=== PATIENT | male | born 1995 | race Caucasian/White ===

== ENCOUNTER 2024-03-09 08:32 | Emergency (ER) | payer BC, SELFPAY ==
--- NOTE | ~2024-03-09 | CT_ITS ---
EXAMINATION: CT ABDOMEN AND PELVIS WITH CONTRAST CLINICAL INFORMATION: Vomiting, diffuse abdominal pain and leukocytosis COMPARISON: None available. TECHNIQUE: Multidetector volumetric images were obtained from the superior aspect of the liver through the pubic symphysis following administration 85 mL of Omnipaque 350 intravenous contrast. Sagittal and coronal reformatted images were obtained on the technologist's workstation. Oral contrast: No This CT examination was performed using dose optimization techniques as appropriate, variously including the following: *Automated exposure control *Adjustment of mA and/or kV according to patient size (this includes techniques or standardized protocols for targeted exams where dose is matched to indication/reason for exam; i.e. extremities or head) *Use of iterative reconstruction technique DLP: 709 mGy-cm FINDINGS: LUNG BASES: The visualized lung bases are unremarkable. LIVER, GALLBLADDER, AND BILIARY TREE: The liver is normal in size, shape, and diffusely low in attenuation. No focal hepatic lesion or biliary ductal dilatation is present. The gallbladder is unremarkable with no evidence of radiopaque gallstones, gallbladder wall thickening, or obvious pericholecystic inflammatory changes. PANCREAS: Unremarkable. SPLEEN: Unremarkable. ADRENAL GLANDS: Unremarkable. KIDNEYS AND URETERS: The kidneys are normal in size, shape, and attenuation. No hydronephrosis, hydroureter, or calculi seen. No perinephric stranding. BLADDER: Unremarkable. GASTROINTESTINAL TRACT: There is mild wall thickening with fat infiltration of the distal small bowel, cecum, ascending colon, and proximal transverse colon. There are mild surrounding inflammatory changes in the right lower quadrant. ABDOMINAL WALL: No significant hernia is appreciated. LYMPH NODES: Multiple small mesenteric lymph nodes. VASCULAR: Unremarkable. PELVIC VISCERA: Unremarkable. OSSEOUS STRUCTURES: Unremarkable. CT/CT abdomen pelvis w IV con IMPRESSION: 1. Mild wall thickening with fat infiltration of the distal small bowel, cecum, ascending colon, and proximal transverse colon. There are mild surrounding inflammatory changes in the right lower quadrant. Findings are suggestive of inflammatory bowel disease. 2. Hepatic steatosis. Fleischner guidelines were followed. Electronically signed by: Carleen Faith MD 03/09/2024 02:08 PM EDT
[2024-03-09 08:36] VITALS: BP 133/95; PULSE 82; RESP 20; TEMP 35.7; O2SAT 99; BMI 29.1
--- NOTE | 2024-03-09 08:55 | ED_ITS ---
HPI - Abdominal Pain General Chief Complaint: Abdominal Pain Stated Complaint: vomiting Time Seen by Provider: 03/09/24 08:54 Source: patient Mode of arrival: ambulatory Limitations: no limitations History of Present Illness ED Provider: sandra RENEE narrative: Patient is 28 years old with history of recurrent episodes of vomiting with abdominal pain had episode about 4 times in the past has [facility] was negative previous CT scans were negative comes here with similar episode says last night had multiple episodes of vomiting tried to take hot showers without much relief Related Data Allergies Allergy/AdvReac Type Severity Reaction Status Date / Time No Known Allergies Allergy Verified 03/09/24 08:37 Review of Systems Review of Systems Yes all other systems are reviewed and are negative [facility] Social History Social History Alcohol intake: current Smoked in Last 30 Days: No Use of substances other than those prescribed or required for medical reasons: Yes Substance Use Type: Marijuana Substance Use Frequency: Daily Advance Directives: No Advance Directives Information Provided: No Do you have a plan to hurt others: No Plan Physical Exam ED Vital Signs: Vital Signs - 24 hr 03/09/24 08:36 03/09/24 10:18 03/09/24 12:21 Temperature 96.3 F L 98.3 F Pulse Rate 82 80 88 Respiratory Rate 20 16 17 Blood Pressure 133/95 H 122/63 100/62 Pulse Oximetry 99 98 98 Oxygen Delivery Method Room Air Room Air Room Air BMI result Body Mass Index 29.1 Appearance: Alert. Oriented X3. No acute distress. Eyes: PERRLA, No Nystagmus ENT: Pharynx normal. Oral Mucosa moist Neck: Normal inspection. Neck supple. CVS: Normal heart rate and rhythm. Pulses normal. Respiratory: No respiratory distress. Equal air entry bilateral, no wheezing/rales/rhonchi Abdomen: Soft and diffuse tenderness Bowel sounds are present, no mass palpable, no CVA tenderness Skin: Skin warm and dry. Normal skin color. Normal skin turgor. Extremities: No lower extremity edema. No calf tenderness Neuro: Oriented X 3. No motor deficit. No sensory deficit.No cerebellar signs , cranial nerves II-XII intact Medical Decision Making Medical Decision Making MDM Narrative: Patient has responded to IV Ativan and Zofran giving IV fluids feeling much better but sleeping at this time lab workup showed leukocytosis with left shift will do CT scan abdomen to rule out any infectious process Differential Diagnosis Differential Diagnoses: The differential diagnosis associated with the presentation includes Acute appendicitis/pancreatitis/cholecystitis/gastroenteritis/gastritis Admission/Observation Consideration of admission/observation: Escalation of care including admission/observation considered Lab Data MDM Lab Attestation statement: I reviewed the patient's lab results. 03/09/24 09:05 03/09/24 09:05 Labs: Lab Results 03/09/24 Range/Units 09:05 WBC 20.6 H (4.8-10.8) X10*3/uL RBC 4.89 (4.60-5.80) X10*6/uL Hgb 13.8 L (14.0-18.0) g/dl Hct 41.1 L (42.0-52.0) % MCV 84.0 (80.0-98.0) fL MCH 28.2 (27.0-33.0) pg MCHC 33.5 (31.0-36.0) g/dl RDW 11.7 (11.0-16.0) % Plt Count 209 (160-400) X10*3/uL MPV 12.3 (9.4-12.4) fL Immature Gran % (Auto) 0.6 H (0.0-0.4) % Neut % (Auto) 85.9 H (45-73) % Lymph % (Auto) 7.5 L (20-40) % Buchanan % (Auto) 5.1 (2-11) % Eos % (Auto) 0.4 (0-4) % Baso % (Auto) 0.5 (0-2) % Lymph # (Auto) 1.6 (1.2-4.9) X10*3/uL Buchanan # (Auto) 1.1 (0.1-1.2) X10*3/uL Eos # (Auto) 0.1 (0.0-0.4) X10*3/uL Baso # (Auto) 0.1 (0.0-0.2) X10*3/uL Abs Immat Gran (auto) 0.13 H (0.00-0.03) X10*3/uL Absolute Neuts (auto) 17.7 H (2.0-8.3) x10*3/uL Absolute Nucleated RBC 0.000 (0.0-0.012) X10*3/uL Nucleated RBC % (auto) 0.0 (0.0-0.2) /100WBC Smear Tech's Comments VERIFIED Sodium 140 (135-145) mmol/L Potassium 4.5 (3.3-5.1) mmol/L Chloride 106 (96-108) mmol/L Carbon Dioxide 19 L (22-29) mmol/L Anion Gap 20 (12-20) BUN 10 (9-16) mg/dL Creatinine 1.16 (0.5-1.4) mg/dL Estim Creat Clear Calc 129.0 Estimated GFR > 60 Random Glucose 165 H (60-115) mg/dL Calcium 10.1 (8.4-10.2) mg/dL Total Bilirubin 0.8 (0.0-1.0) mg/dL Direct Bilirubin < 0.1 (0.0-0.5) mg/dL AST 34 (5-37) U/L ALT 57 H (0-40) U/L Alkaline Phosphatase 67 (39-117) U/L Total Protein 9.7 H (6.5-8.0) g/dL Albumin 5.3 H (3.5-5.0) g/dL Lipase 15 (8-78) U/L Medications Administered Discontinued Medications Generic Name Dose Route Start Last Admin Trade Name Freq PRN Reason Stop Dose Admin Famotidine 20 mg 03/09/24 09:15 03/09/24 09:24 Famotidine/Pf 20 Mg/2 Ml Vial IVPUSH 03/09/24 09:16 20 mg ONCE ONE Administration Sodium Chloride 1,000 mls @ 999 mls/hr 03/09/24 08:55 03/09/24 10:13 Ns IV 03/09/24 09:55 Infused .Q1H1M ONE Infusion Lorazepam 2 mg 03/09/24 09:15 03/09/24 09:24 Lorazepam 2 Mg/Ml Vial IVPUSH 03/09/24 09:16 2 mg ONCE ONE Administration Ondansetron HCl 4 mg 03/09/24 08:55 03/09/24 09:09 Ondansetron Hcl 4 Mg/2 Ml Vial IVPUSH 03/09/24 08:56 4 mg ONCE ONE Administration Discharge Plan Discharge Clinical Impression: Abdominal pain Patient Disposition: Still a Patient Print Language: German
[2024-03-09] MEDS: 0.9 % Sodium Chloride 1,000 ML 999 ML IV ×2 (09:09→12:36)
[2024-03-09] MEDS: ondansetron HCL 4 MG/2 ML VIAL IVPUSH (09:09)
[2024-03-09] MEDS: Famotidine/PF 20 MG/2 ML VIAL IVPUSH (09:24)
[2024-03-09] MEDS: LORazepam 2 MG/ML VIAL IVPUSH (09:24)
[2024-03-09 09:39] LABS: Alanine Aminotransferase 57 U/L (0-40); Albumin Level 5.3 g/dL (3.5-5.0); Alkaline Phosphatase 67 U/L (39-117); Anion Gap 20 (12-20); Aspartate Amino Transferase 34 U/L (5-37); Bilirubin Direct < 0.1 mg/dL (0.0-0.5); Bilirubin Total 0.8 mg/dL (0.0-1.0); Blood Urea Nitrogen 10 mg/dL (9-16); Calcium 10.1 mg/dL (8.4-10.2); Carbon Dioxide 19 mmol/L (22-29); Chloride 106 mmol/L (96-108); Estimated Glomerular Filt Rate > 60; Glucose Random 165 mg/dL (60-115); Lipase 15 U/L (8-78); Potassium 4.5 mmol/L (3.3-5.1); Sodium 140 mmol/L (135-145); Total Protein 9.7 g/dL (6.5-8.0)
[2024-03-09 10:02] LABS: Basophils Absolute Auto 0.1 X10*3/uL (0.0-0.2); Basophils Percent Auto 0.5 % (0-2); Eosinophils Absolute Auto 0.1 X10*3/uL (0.0-0.4); Eosinophils Percent Auto 0.4 % (0-4); Hematocrit 41.1 % (42.0-52.0); Imm Gran Abs Auto 0.13 X10*3/uL (0.00-0.03); Imm Gran Pct Auto 0.6 % (0.0-0.4); Lymphocytes Absolute Auto 1.6 X10*3/uL (1.2-4.9); Lymphocytes Percent Auto 7.5 % (20-40); MANUAL DIFF FLAG SCAN; Mean Platelet Volume 12.3 fL (9.4-12.4); Monocytes Absolute Auto 1.1 X10*3/uL (0.1-1.2); Monocytes Percent Auto 5.1 % (2-11); Neutrophils Absolute Auto 17.7 x10*3/uL (2.0-8.3); Neutrophils Percent Auto 85.9 % (45-73); Platelet Count 209 X10*3/uL (160-400); Red Blood Count 4.89 X10*6/uL (4.60-5.80); Red Cell Distribution Width 11.7 % (11.0-16.0); SCAN SMEAR FLAG 1; White Blood Count 20.6 X10*3/uL (4.8-10.8)
[2024-03-09 10:09] LABS: Hemoglobin 13.8 g/dl (14.0-18.0)
[2024-03-09 10:10] LABS: Mean Corpuscular HGB Conc 33.5 g/dl (31.0-36.0); Mean Corpuscular Hemoglobin 28.2 pg (27.0-33.0)
[2024-03-09 10:18] VITALS: BP 122/63; PULSE 80; RESP 16; TEMP 36.8; O2SAT 98
[2024-03-09 10:23] LABS: SLIDE REVIEW VERIFIED
--- NOTE | 2024-03-09 11:09 | PC.NURSE ---
pt aox4, ambulatory and independent. He comes to the ED from home after waking up at 0500 this morning with severe nausea, vomiting and severe abd pain. Upon arrival he was anxious and tearful. He says the pain in his stomach is sharp. He has a hx of these episodes - reports 4 times in the past year. He is going to GI at [facility] and has had a recent colonoscopy. He drinks occasionally on the weekends and smokes marijuana daily. 20g IV right AC, fluids infused and meds given per AUG. Pt is now sleeping. plan of care ongoing
[2024-03-09 12:21] VITALS: BP 100/62; PULSE 88; RESP 17; O2SAT 98
[2024-03-09] MEDS: iohexoL 350 MG/ML 100 ML INFUS..BTL 85 ML IV (12:42)
--- NOTE | 2024-03-09 12:50 | PC.NURSE ---
pt reports he is feeling much better. He reports almost complete improvement. Per Dr. Garcia another liter bolus and CT scan. Pt OK with plan
[2024-03-09] MEDS: levoFLOXacin 750 MG TABLET PO (14:40)
[2024-03-09] MEDS: predniSONE 20 MG TABLET 60 MG PO (14:40)
[2024-03-09 15:21] VITALS: BP 100/62; PULSE 88; RESP 17; TEMP 36.9; O2SAT 98
[2024-03-09 15:27] LABS: Appearance Urine Clear; Color Urine Yellow; Glucose Urine UA Negative (Negative); Leukocyte Esterase Urine Negative (Negative); Nitrite Urine Negative (Negative); PH >= 9.0 (5.0-9.0); Specific Gravity - Urine >= 1.030 (1.005-1.025); Urine Blood Negative (Negative); Urine Ketones Trace mg/dL (Negative); Urine Protein Negative (Neg-Trace)
== END 2024-03-09 15:53 | disposition home or self-care (01) ==
PROVIDERS: Emergency Provider Internal Medicine
DX: R11.10 Vomiting, unspecified (principal); R10.9 Unspecified abdominal pain; D72.829 Elevated white blood cell count, unspecified; F12.90 Cannabis use, unspecified, uncomplicated
CPT/HCPCS: 36415; 74177; 80048; 80076; 81003; 83690; 85025; 96361; 96374; 96375; 99284; J2060; J2405; Q9967

== ENCOUNTER 2024-09-20 06:29 | Inpatient (IN) | payer BC, SELFPAY ==
[2024-09-20] VITALS (7 sets, daily range): BP systolic 128–142; BP diastolic 79–95; PULSE 73–100; RESP 14–20; TEMP 36.2–37.4; O2SAT 96–100; BMI 26.8
--- NOTE | ~2024-09-20 | CT_ITS ---
EXAMINATION: CT ABDOMEN AND PELVIS WITH CONTRAST CLINICAL INFORMATION: Diffuse abdominal pain, rule out colitis. COMPARISON: 03/09/2024. TECHNIQUE: Multidetector volumetric images were obtained from the superior aspect of the liver through the pubic symphysis following administration 85 mL of Omnipaque 350 intravenous contrast. Sagittal and coronal reformatted images were obtained on the technologist's workstation. Oral contrast: No This CT examination was performed using dose optimization techniques as appropriate, variously including the following: *Automated exposure control *Adjustment of mA and/or kV according to patient size (this includes techniques or standardized protocols for targeted exams where dose is matched to indication/reason for exam; i.e. extremities or head) *Use of iterative reconstruction technique FINDINGS: LUNG BASES: The visualized lung bases are unremarkable. LIVER, GALLBLADDER, AND BILIARY TREE: There is diffuse fatty infiltration of the liver. Liver has normal size and contour. No suspicious liver lesion. No intra or extrahepatic biliary dilatation. The gallbladder is unremarkable with no evidence of radiopaque gallstones, gallbladder wall thickening, or obvious pericholecystic inflammatory changes. PANCREAS: Unremarkable. SPLEEN: Unremarkable. ADRENAL GLANDS: Unremarkable. KIDNEYS AND URETERS: The kidneys are normal in size, shape, and attenuation. No hydronephrosis, hydroureter, or calculi seen. No perinephric stranding. BLADDER: Unremarkable. GASTROINTESTINAL TRACT: There is diffuse thickening of the terminal ileum, long segment, leading into the ileocecal valve. In addition there is thickening and mild inflammation of the ascending and transverse colon to the level of the splenic flexure. The descending colon, sigmoid colon, and rectum appear normal. The stomach, and duodenum appear normal. The proximal small bowel appears normal. There is a small type I hiatus hernia. ABDOMINAL WALL: No significant hernia is appreciated. LYMPH NODES: Normal. VASCULAR: Unremarkable. PELVIC VISCERA: The prostate and seminal vesicles are unremarkable. OSSEOUS STRUCTURES: There is a minimal levoconvex lumbar scoliosis. Osseous structures otherwise normal. SI joints have a normal appearance. CT/CT abdomen pelvis w IV con IMPRESSION: 1. Wall thickening of the ileum, ascending and transverse colon to the level of the splenic flexure. Findings are consistent with ileocolitis, likely secondary to inflammatory bowel disease. No complications or free intraperitoneal air. 2. Small type I hiatus hernia. 3. Diffuse fatty infiltration of the liver. 4. Additional ancillary findings as discussed in the body of the report. Fleischner guidelines were followed. Electronically signed by: Lior Roberts MD 09/20/2024 09:27 AM EDT
[2024-09-20 07:25] LABS: MANUAL DIFF FLAG NO
--- OUTSIDE RECORDS SUMMARY | 2024-09-20 07:29 | XMS_ITS | Clinical Summary ---
Author Organization [address] Address [address] [place] [phone] Phone Care Team Providers Care Manager Immunology Name Role Phone Unavailable Primary Care Provider Unavailabl e Allergies Active Allergy Reactions Criticality Noted Date Comments Methylphenidate Anxiety Low 12/29/2022 Medications famotidine (PEPCID) 20 mg tablet Take 1 tablet (20 mg total) by mouth 2 (two) times daily. 30 tablet 12/30/2022 Active Social History Tobacco Use Types Packs/Day Years Used Date Smoking Tobacco: Former Cigarettes Q uit: 2021 Tobacco Cessation:Counseling Given: Not Answered Alcohol Use Standard Drinks/Week Comments Not Currently 0 (1 standard drink = 0.6 oz pur e alcohol) Sex and Gender Information Value Date Recorded Sex Assigned at Not on file Legal Sex Male 4:20 PM EDT Gender Identity Not on file Sexual Orientation Not on file Last Filed Vital Signs Vital Sign Reading Time Taken Comments Blood Pressure 130/80 12/30/2022 3:58 AM EDT Pulse 90 12/30/2022 3:58 AM EDT Temperature 37.1 ??C (98.8 ??F) 12/30/2022 2:01 AM ED T Respiratory Rate 20 12/30/2022 3:58 AM EDT Oxygen Saturation 98% 12/30/2022 3:58 AM EDT Inhaled Oxygen Concentration - - Weight 97 kg (213 lb 13.5 oz) 12/30/2022 2:01 AM EDT Height 193 cm (6' 4 ) 12/29/2022 4:23 PM EDT Body Mass Index 26.03 12/29/2022 4:23 PM EDT Plan of Treatment Health Maintenance Due Date Last Done Comments HIV screening 2009 Hepatitis C screening 2014 Covid-19 vaccine series (2023- season) 2024 Influenza vaccine 02/03/2025 Tetanus adult (Td q 10,TDAP once) 09/10/2028 09/10/2018, 01/02/2008, 10/06/2001, Additional history exists RSV Immunization (1 - 1-dose 75+ series) 09/07/2071 Meningococcal Vaccine Completed 03/13/2014, 009 Pneumococcal Vaccine (2 - 49 years) Aged Out No longer eligible based on patient's age to complete this topic Insurance ([employer]) [address] [facility] [place] [id number] [facility]
--- OUTSIDE RECORDS SUMMARY | 2024-09-20 07:29 | XMS_ITS | Clinical Summary ---
Author Organization [facility] Address [address] [place] [address] Care Team Providers Care Historic Preservationist Name Role Phone Rell Bey Primary Care Provider [phone] Allergies Active Allergy Reactions Criticality Noted Date Comments Dexmethylphenidate Rash 12/18/2016 aggitated Lamotrigine Rash 05/13/2024 Methylphenidate Anxiety Low 12/29/2022 Medications omeprazole OTC (PriLOSEC OTC) 20 mg EC tablet Take 20 mg by mouth. 4 Active metoclopramide (REGLAN) 5 mg tablet Take 5 mg by mouth. prn 4 Active sertraline (ZOLOFT) 100 mg tablet Take 150 mg by mouth once a day. 4 02/08/20 25 Active buPROPion XL (WELLBUTRIN XL) 300 mg tablet Take 300 mg by mouth. 4 Active cyanocobalamin (VITAMIN B12) 1,000 mcg/mL injectionIndica tions:B12 deficiency Inject 1000 mcg IM once weekly for 4 weeks, then monthly 1 mL 11 4 Active syringe with needle (Syringe 3cc/25Gx1 ) 3 mL 25 gauge x 1 syringe 3 mL 25 gauge 1 Indications:B 12 deficiency For use with B12 injections (see separate script) 10 each 1 4 Active amitriptyline (ELAVIL) 10 mg tablet Take 1 tablet (10 mg total) by mouth nightly. 90 tablet 1 5 Active Active Problems Problem Noted Date Diagnosed Date Dysthymic disorder 01/29/2013 Generalized anxiety disorder 01/29/2013 Encounters Date Type Department Care Team Description 08/14/2024 Refill [facility] - Neurology [address] [place] [address] Juan Ramon Calderon MD 07/08/2024 Orders Only [facility] Neurology [address] [place] [address] Provider, MD Renée from Last 3 Months Family History Medical History Relation Name Comments Other Mother No pertinent fa santa history Relation Name Status Comments Mother Social History Tobacco Use Types Packs/Day Years Used Date Smoking Tobacco: Never Comments:: Sex and Gender Information Value Date Recorded Sex Assigned at Male 01/10/2024 12:31 PM EDT Legal Sex Male 12:10 AM EDT Gender Identity Male 05/13/2024 12:36 PM EST Sexual Orientation Bisexual 05/13/2024 12 :36 PM EST Last Filed Vital Signs Vital Sign Reading Time Taken Comments Blood Pressure 128/76 05/13/2024 1:07 PM EST Pulse 80 05/13/2024 1:07 PM EST Temperature - - Respiratory Rate - - Oxygen Saturation 98% 05/13/2024 1:07 PM EST Inhaled Oxygen Concentration - - Weight 114.8 kg (253 lb) 05/13/2024 1:07 PM EST Height 188 cm (6' 2 ) 08/15/2013 8:20 AM EDT Body Mass Index - - Plan of Treatment Health Maintenance Due Date Last Done Comments HIV Screening 1996 Hepatitis C Screening 1996 COVID-19 Vaccine ( season) 2024 05/02/2021, 10/16/2020, 09/25/2020 Alcohol/Substance Use Screening 06/05/2024 Depression Screening and Follow-Up 06/05/2024 Social Drivers of Health Annual Screening 06/05/2024 Influenza Vaccine (Season Ended) 2025 03/31/2023, 03/13/2014, 03/01/2012, Additional history exists DTaP,Tdap,and Td Vaccines (8 - Td or Tdap) 09/10/2028 09/10/2018, 01/02/2008, 10/06/2001, Additional history exists RSV Vaccine (60+ years old and patients) (1 - 1-dose 75+ series) 09/07/2071 Hepatitis B Vaccines Completed 03/08/1997, 1996, 1996 Varicella Vaccines Completed 02/04/2009, 11/06/1997 Pneumococcal Vaccine: Pediatric (0-5 Years) and At-Risk Patients (6-50 Years) Aged Out No longer eligible based on patient's age to complete this topic Insurance [facility] PPO/EPO Care Teams Historic Preservationist Relationship Specialty Start Date End Date Rell Bey [address] [place] [address] PCP - General Internal Medicine 11/23/21
--- OUTSIDE RECORDS SUMMARY | 2024-09-20 07:29 | XMS_ITS | Referral Summary ---
Author Organization [facility] Address [address] [place] [address] Care Team Providers Care Filter Press Operator Name Role Phone Rell Bey Primary Care Provider [phone] Encounters Date Type Department Care Team Description 08/14/2024 Refill [facility] at [facility] - Neurology [address] [place] [phone] Juan Ramon Calderon MD 07/08/2024 Orders Only [facility] Neurology [address] [place] [id number] Provider, MD Renée from Last 3 Months Allergies Active Allergy Reactions Criticality Noted Date [...] Dysthymic disorder 01/29/2013 Generalized anxiety disorder 01/29/2013 Social History Tobacco Use Types Packs/Day Years [...] Mass Index - - Plan of Treatment Not on file Insurance [facility] PPO/EPO Care Teams Filter Press Operator Relationship Specialty Start Date End Date Rell Bey [address] [place] [address] PCP - General Internal Medicine 11/23/21
--- NOTE | 2024-09-20 07:34 | ED.NAVMDI ---
HPI - Nausea/Vomiting/Diarrhea General Chief complaint: Nausea/Vomiting/Diarrhea Stated complaint: vomiting blood Time Seen by Provider: 09/20/24 07:34 Source: patient Mode of arrival: ambulatory Limitations: no limitations History of Present Illness ED Provider: LY RENEE Narrative: 29 year-old male with no significant past medical history presents to the ED due to / abdominal pain and frequent vomiting. Patient reports he drinks approximately 3-4 glasses of cognac 3 times per week and consumes marijuana approximately 3 times daily. He explains he drank approximately 3 glasses of cognac and took a nap, he woke an hour later around 7pm due to sudden onset of abdominal pain and vomiting. He states he has had 4-5 episodes of vomiting and noticed the vomit had a coffee ground appearance with bright streaks of red blood and cannot keep food or liquids down. Patient has emesis bag with small volume of vomit at the bedside and it appears to be food contents with mucus. He reports having a bowel movement last night where he noticed some bright red blood in the stool. He states he is feeling some tingling in his face and extremities and hands are cold. Patient [place] [facility] [place] and reports this pain feels similar to his previous presentation where CT scan revealed colitis. He explains he followed up with GI and cant remember the definitive findings, but thinks it was explained as a viral colitis. He also endorses mild substernal chest pain that worsens on inspiration and is reproducible with palpation. He denies sick contacts, recent illness, fever, cough, diarrhea, or shortness of breath. MD elicited complaint: nausea, vomiting and abdominal pain (diffuse) Pertinent past history: other (colitis) Onset (ago): hour(s) (last night (09/19) 7pm ) Description of vomiting: bloody (with bright red streaks of blood.), coffee grounds and other (vomit in emesis bag at bedside shows food contents with mucus. No coffee ground emesis or bright red blood present) Location of pain: diffuse Radiation: diffuse Pain consistency: constant Severity: severe Pain scale (0-10): 10 Quality: constant Exacerbating factors: movement Relieving factors: none Associated symptoms: chest pain (substernal, reproduceable on palpation) and nausea/vomiting Treatment prior to arrival: none Related Data Home Medications ?Medication ?Instructions ?Recorded ?Confirmed amitriptyline 10 mg tablet 10 mg PO BEDTIME 09/20/24 09/20/24 bupropion HCl 300 mg 24 hr tablet, 300 mg PO DAILY 09/20/24 09/20/24 extended release famotidine 20 mg tablet 40 mg PO BEDTIME 09/20/24 09/20/24 omeprazole 40 mg capsule,delayed 40 mg PO DAILY@0630 09/20/24 09/20/24 release sertraline 100 mg tablet 150 mg PO BEDTIME 09/20/24 09/20/24 Allergies Allergy/AdvReac Type Severity Reaction Status Date / Time No Known Allergies Allergy Verified 09/20/24 06:40 Review of Systems Review of Systems: Yes all other systems are reviewed and are negative PMFSH Past Medical History Attestation statement: The following information was validated with the patient. Source: old records reviewed Social History Social History Alcohol intake: current Alcohol intake frequency: a few times a week Smoked in Last 30 Days: No Use of substances other than those prescribed or required for medical reasons: Yes Substance Use Type: Marijuana Advance Directives: No Advance Directives Information Provided: No Do you have a plan to hurt others: No Plan Physical Exam Vital Signs: Vital Signs: Last Vital Signs Temp 99.3 F 09/20/24 15:42 Pulse 92 09/20/24 15:42 Resp 16 09/20/24 15:42 BP 134/89 09/20/24 15:42 Pulse Ox 97 09/20/24 15:42 O2 Del Method Room Air 09/20/24 15:42 BMI result Body Mass Index 26.8 Inital vital signs: stable Exam: General: Awake, alert, patient is tearful in moderate distress due to abdominal pain and vomiting Head: Normocephalic, atraumatic EENT: PERRL, Lids normal, sclera normal, conjunctiva normal, nose normal , ears normal, throat without erythema or exudates, moist mucus membranes Neck: Supple, no adenopathy Lung: breath sounds symmetric, no wheezing, rales or rhonchi Chest: symmetric movement, substernal tenderness on palpation Heart: regular rate and rhythm, normal S1, S2 no murmurs or rubs Abdomen: soft, diffusely tender, non-distended, normal bowel sounds Back: no vertebral tenderness, no CVAT Extremities: no deformities, moves all extremities symmetrically Neuro: Awake, alert, oriented, normal speech, cranial nerves intact, moves all extremities symmetrically Psych: Pleasant, cooperative Medications Administered Discontinued Medications Generic Name Dose Route Start Last Admin Trade Name Mirq PRN Reason Stop Dose Admin Bupropion HCl 300 mg 09/20/24 13:15 09/20/24 13:50 Bupropion Hcl Xl 300 Mg Tab.Er.24h PO 300 mg DAILY BRYAN Administration Droperidol 1.25 mg 09/20/24 08:10 09/20/24 08:16 Droperidol 5 Mg/2 Ml Vial IVPUSH 09/20/24 08:11 1.25 mg ONCE ONE Administration Hydromorphone HCl 1 mg 09/20/24 08:37 09/20/24 08:41 Hydromorphone Hcl 1 Mg/Ml Syringe IVPUSH 09/20/24 08:38 1 mg ONCE STA Administration Protocol Sodium Chloride 1,000 mls @ 999 mls/hr 09/20/24 07:35 09/20/24 09:48 Ns IV 09/20/24 08:35 Infused .Q1H1M STA Infusion Sodium Chloride 1,000 mls @ 999 mls/hr 09/20/24 08:10 09/20/24 10:13 Ns IV 09/20/24 09:10 Infused .Q1H1M STA Infusion Lactated Ringer's 1,000 mls @ 100 mls/hr 09/20/24 12:00 09/20/24 15:40 Lr IVCONT Infused .Q10H BRYAN Infusion Iohexol 100 ml 09/20/24 09:16 09/20/24 09:16 Iohexol 350 Mg/Ml 100 Ml Infus..Btl IV 09/20/24 09:17 85 ml ONCE ONE Administration Ketorolac Tromethamine 15 mg 09/20/24 07:35 09/20/24 07:39 Ketorolac Tromethamine 15 Mg/Ml Vial IVPUSH 09/20/24 07:36 15 mg ONCE STA Administration Morphine Sulfate 4 mg 09/20/24 08:10 09/20/24 08:17 Morphine Sulfate 4 Mg/Ml Cartridge IVPUSH 09/20/24 08:11 4 mg ONCE ONE Administration Protocol Ondansetron HCl 4 mg 09/20/24 07:35 09/20/24 07:39 Ondansetron Hcl 4 Mg/2 Ml Vial IVPUSH 09/20/24 07:36 4 mg ONCE ONE Administration Pantoprazole Sodium 80 mg 09/20/24 11:21 09/20/24 11:53 Pantoprazole Sodium 40 Mg/10 Ml Vial IVPUSH 09/20/24 11:22 80 mg ONCE ONE Administration Medical Decision Making Medical Decision Making [facility] Narrative: 29 year-old male with no significant past medical history presents to the ED due to 03/14 abdominal pain and frequent vomiting. Patient reports he drinks approximately 3-4 glasses of cognac 3 times per week and consumes marijuana approximately 3 times daily. He explains he drank approximately 3 glasses of cognac and took a nap, he woke an hour later around 7pm due to sudden onset of abdominal pain and vomiting. He states he has had 4-5 episodes of vomiting and noticed the vomit had a coffee ground appearance with bright streaks of red blood and cannot keep food or liquids down. Patient has emesis bag with small volume of vomit at the bedside and it appears to be food contents with mucus. He reports having a bowel movement last night where he noticed some bright red blood in the stool. He states he is feeling some tingling in his face and extremities and hands are cold. Patient [place] [facility] [place] [place] [facility] [place]03[place]28) and reports this pain feels similar to his previous presentation where CT scan revealed colitis. He explains he followed up with GI and cant remember the definitive findings, but thinks it was explained as a viral colitis. He also endorses mild substernal chest pain that worsens on inspiration and is reproducible with palpation. He denies sick contacts, recent illness, fever, cough, diarrhea, or shortness of breath. Patients vital signs are stable, he is tearful and in moderate distress due to nausea and vomiting. He is non-toxic appearing. My interpretation of the labs are as follows: Patients labs show elevated WBC 16.1, elevated bilirubin of 1.4, elevated glucose 140. Lipase within normal limits, less likely pancreatitis. ESR/CRP within normal limits. 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 CT abdomen pelvis ordered to observe for acute abdomen. Patient was seen at [facility] [place] and found to have colitis, patient states this pain is similar to his last presentation. Patient's tingling of face and extremities most likely due to distress and hyperventilation syndrome while reporting his symptoms. Pain medication and droperidol for nausea should relieve his discomfort. Diffuse abdominal pain on physical exam with negative cox's sign, lipase within normal limits, less likely to be pancreatitis or biliary disease. Elevated total bilirubin likely normal for him or maybe Gilbert's Syndrome. Patient smokes marijuana 3 times daily, likely for marijuana induced cyclical vomiting. Will reassess if droperidol and fluids relieve nausea. Course 08:32: patient unable to participate in CT scan due to abdominal pain. Ordered 1mg of Dilaudid for pain management and obtaine CT when patient has better pain control. Also treated with normal saline IV. 09:28: Patient pain and nausea controlled at this time as he is resting quietly. He was able to complete CT abdomen pelvis. Awaiting results. 10:06: CT scans resulted with evidence of thickening of the ileum, ascending and transverse colon. These findings are consistent with ileocolitis, likely inflammatory, maybe IBS however ESR and CRP are normal . Will consult GI for their recommendations. 11:24: I discuss the patient's presentation with the covering computer technology trainer, Dr. Iqbal and he recommended admission for pain management, IV fluies and further evaluation. He also recommended Protonix IV. Patient was given Protonix 80 mg IV here in the emergency department. I also discuss the patient's presentation over tiger text with the covering hospitalist, physician mortgage assistant Ilda Dave and the patient will be admitted to the medical service for further treatment. Dr. Iqbal did see the patient in the ED and does not think the patient will need endoscopy or colonoscopy this visit. He recommended liquid diet, advanced as tolerated and IV fluids and pain management as needed. Differential Diagnosis Differential Diagnoses: The differential diagnosis associated with the presentation includes colitis, pancreatitis, biliary disease, gastritis, marijuana cyclical vomiting syndrome Admission/Observation Consideration of admission/observation: Escalation of care including admission/observation considered Consult Healthcare Provider Management of the patient was discussed with: Hospitalist and Family Court Registrar (GI) Lab Data MDM Lab Attestation statement: I reviewed the patient's lab results. 09/20/24 07:20 09/20/24 07:20 Labs: Lab Results 09/20/24 Range/Units 07:20 WBC 16.1 H (4.8-10.8) X10*3/uL RBC 5.52 (4.60-5.80) X10*6/uL Hgb 16.5 (14.0-18.0) g/dl Hct 46.9 (42.0-52.0) % MCV 85.0 (80.0-98.0) fL MCH 29.9 (27.0-33.0) pg MCHC 35.2 (31.0-36.0) g/dl RDW 12.4 (11.0-16.0) % Plt Count 268 D (160-400) X10*3/uL MPV 12.3 (9.4-12.4) fL Immature Gran % (Auto) 0.7 H (0.0-0.4) % Neut % (Auto) 70.4 (45-73) % Lymph % (Auto) 20.4 (20-40) % Bertie % (Auto) 5.3 (2-11) % Eos % (Auto) 2.6 (0-4) % Baso % (Auto) 0.6 (0-2) % Lymph # (Auto) 3.3 (1.2-4.9) X10*3/uL Bertie # (Auto) 0.9 (0.1-1.2) X10*3/uL Eos # (Auto) 0.4 (0.0-0.4) X10*3/uL Baso # (Auto) 0.1 (0.0-0.2) X10*3/uL Abs Immat Gran (auto) 0.12 H (0.00-0.03) X10*3/uL Absolute Neuts (auto) 11.3 H (2.0-8.3) x10*3/uL Absolute Nucleated RBC 0.000 (0.0-0.012) X10*3/uL Nucleated RBC % (auto) 0.0 (0.0-0.2) /100WBC ESR 3 (0-15) MM/HR Hold Purple Top SEE NOTE Sodium 142 (135-145) mmol/L Potassium 3.7 (3.3-5.1) mmol/L Chloride 105 (96-108) mmol/L Carbon Dioxide 22 (22-29) mmol/L Anion Gap 19 (12-20) BUN 11 (9-16) mg/dL Creatinine 0.80 (0.5-1.4) mg/dL Estim Creat Clear Calc 168.7 Estimated GFR > 60 Random Glucose 140 H (60-115) mg/dL Calcium 10.1 (8.4-10.2) mg/dL Total Bilirubin 1.4 H (0.0-1.0) mg/dL AST 26 (5-37) U/L ALT 27 (0-40) U/L Alkaline Phosphatase 82 (39-117) U/L C-Reactive Protein 0.13 (< or = 0.50) mg/dL Total Protein 8.3 H (6.5-8.0) g/dL Albumin 5.2 H (3.5-5.0) g/dL Lipase 12 (8-78) U/L Ethyl Alcohol < 10 mg/dL Radiology Impression Discussion of test interpretation with radiology: I have reviewed the radiologist's reading. Radiologist Impression: CT abdomen pelvis w IV con IMPRESSION: 1. Wall thickening of the ileum, ascending and transverse colon to the level of the splenic flexure. Findings are consistent with ileocolitis, likely secondary to inflammatory bowel disease. No complications or free intraperitoneal air. 2. Small type I hiatus hernia. 3. Diffuse fatty infiltration of the liver. 4. Additional ancillary findings as discussed in the body of the report. Fleischner guidelines were followed. Electronically signed by: Lior Roberts MD 09/20/2024 09:27 AM EDT External Record Review External record reviewed: Inpatient record Discharge Plan Discharge Clinical Impression: Colitis Hematemesis Qualifiers: Nausea presence: with nausea Qualified Code(s): K92.0 - Hematemesis Gastritis Qualifiers: Gastritis type: unspecified gastritis Chronicity: acute Gastritis bleeding: with bleeding Qualified Code(s): K29.01 - Acute gastritis with bleeding Patient Disposition: Admitted As Inpatient Interventions: ED Discharge Assessment Last Done: 09/20/24 15:42 Discharge Date/Time: 09/20/24 15:43
--- NOTE | 2024-09-20 07:35 | PC.NURSE ---
Patient reports has been throwing up coffee ground vomit x last 6 hours. Believes that he has ETOH posioning. Denies daily etoh use sates drank more yesterday than usual. Reports 10 abdominal pain, provider aware
[2024-09-20] MEDS: Ketorolac Tromethamine 15 MG/ML VIAL IVPUSH (07:39)
[2024-09-20] MEDS: 0.9 % Sodium Chloride 1,000 ML 999 ML IV ×2 (07:39→08:21)
[2024-09-20] MEDS: ondansetron HCL 4 MG/2 ML VIAL IVPUSH (07:39)
[2024-09-20 07:43] LABS: Basophils Absolute Auto 0.1 X10*3/uL (0.0-0.2); Basophils Percent Auto 0.6 % (0-2); Eosinophils Absolute Auto 0.4 X10*3/uL (0.0-0.4); Eosinophils Percent Auto 2.6 % (0-4); Hematocrit 46.9 % (42.0-52.0); Hemoglobin 16.5 g/dl (14.0-18.0); Imm Gran Abs Auto 0.12 X10*3/uL (0.00-0.03); Imm Gran Pct Auto 0.7 % (0.0-0.4); Lymphocytes Absolute Auto 3.3 X10*3/uL (1.2-4.9); Lymphocytes Percent Auto 20.4 % (20-40); Mean Corpuscular HGB Conc 35.2 g/dl (31.0-36.0); Mean Corpuscular Hemoglobin 29.9 pg (27.0-33.0); Mean Platelet Volume 12.3 fL (9.4-12.4); Monocytes Absolute Auto 0.9 X10*3/uL (0.1-1.2); Monocytes Percent Auto 5.3 % (2-11); Neutrophils Absolute Auto 11.3 x10*3/uL (2.0-8.3); Neutrophils Percent Auto 70.4 % (45-73); Platelet Count 268 X10*3/uL (160-400); Red Blood Count 5.52 X10*6/uL (4.60-5.80); Red Cell Distribution Width 12.4 % (11.0-16.0); White Blood Count 16.1 X10*3/uL (4.8-10.8)
[2024-09-20 07:48] LABS: Alanine Aminotransferase 27 U/L (0-40); Albumin Level 5.2 g/dL (3.5-5.0); Alkaline Phosphatase 82 U/L (39-117); Anion Gap 19 (12-20); Aspartate Amino Transferase 26 U/L (5-37); Bilirubin Total 1.4 mg/dL (0.0-1.0); Blood Urea Nitrogen 11 mg/dL (9-16); Calcium 10.1 mg/dL (8.4-10.2); Carbon Dioxide 22 mmol/L (22-29); Chloride 105 mmol/L (96-108); Creatinine Clr Calc Pharmacy 168.7; Estimated Glomerular Filt Rate > 60; Ethanol < 10 mg/dL; Glucose Random 140 mg/dL (60-115); Potassium 3.7 mmol/L (3.3-5.1); Sodium 142 mmol/L (135-145); Total Protein 8.3 g/dL (6.5-8.0)
[2024-09-20] MEDS: droPERidol 5 MG/2 ML VIAL 1.25 MG IVPUSH (08:16)
[2024-09-20] MEDS: Morphine Sulfate 4 MG/ML CARTRIDGE IVPUSH (08:17)
[2024-09-20 08:23] LABS: Lipase 12 U/L (8-78)
[2024-09-20 08:36] LABS: C Reactive Protein 0.13 mg/dL (< or = 0.50)
[2024-09-20] MEDS: HYDROmorphone HCl 1 MG/ML SYRINGE IVPUSH (08:41)
--- NOTE | 2024-09-20 08:52 | PC.NURSE ---
Brought to CT, patient yelling stating his legs hurt and he needs more medication before we will have CT scan. Provider aware, medicated per mar
[2024-09-20] MEDS: iohexoL 350 MG/ML 100 ML INFUS..BTL IV (09:16)
[2024-09-20 09:39] LABS: Erythrocyte Sedimentation Rate 3 MM/HR (0-15)
--- NOTE | 2024-09-20 10:16 | PC.NURSE ---
Patient reports feeling much better and is requesting discharge. Aware that provider needs to review CT scan with GI and then will come see patient.
[2024-09-20] MEDS: Pantoprazole Sodium 40 MG/10 ML VIAL 80 MG IVPUSH (11:53)
--- NOTE | 2024-09-20 11:56 | P.HPHOSP_ITS ---
History of Present Illness Date of Service: 09/20/24 Attending physician on admission: Sudarshan Miller Chief Complaint: N/V and abd pain Pt is a 29-year-old male with a PMH significant for chronic abdominal pain, depression, and?anxiety who presents to the ED with?intractable nausea, vomiting, and abdominal pain since early this morning. Pt reports was awoken from sleep at approximately 02:00 with severe central abdominal pain and nausea and vomiting. Reports could not stop vomiting once he started. Began noticing streaks of bright red blood in his vomitus, and then reports had 4 episodes of coffee-ground emesis. Also notes had 1 episode of dark black and tarry stool yesterday morning. Describes it as looking like ?sludge?. Lightheadedness and dizziness with vomiting, and some chest tightness associated with deep breathing. Pt with some vomiting in the ED, but no coffee-ground emesis noted. Denies diarrhea. Pt reports he has had similar incidents in the past and has been seen both here on 03/09/2024 and also at [facility]. Pt reports has had similar symptoms in the past and follows with GI at [facility] [place]. Last summer had EGD that showed dilation throughout esophagus, hiatal hernia, and squamous papilloma. Colonoscopy at the same time showed TA polyp but otherwise benign. 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 Complains of chills but no measured fever. No chest pain/pressure, palpitations. Denies cough. Pt also admits to smoking marijuana 2-3 times daily. Reports he knows friends who have cannabis hyperemesis syndrome and does not believe his N/V secondary to marijuana use. In the ED pt with elevated HR up to 100 and initially mildly hypertensive at 142/95. Labs were significant for leukocytosis 16.1 and T bili 1.4. H&H stable at 16 0.5/46.9. No significant electrolyte abnormalities. Renal function WNL. Hepatic function WNL. ESR and CRP WNL. Lipase WNL. CT?of abdomen/pelvis showed wall thickening of ileum, ascending, and transverse colon to level of splenic flexure consistent with ileocolitis, likely secondary to IBD. Also showed small hiatal hernia. Pt was treated in the ED with IVF, ketorolac, morphine, Dilaudid, ondansetron, drawer Benadryl, and Protonix IV. Pt admitted to the hospital for treatment and further evaluation of intractable nausea, vomiting, and abdominal pain with hematemesis concerning for colitis vs IBD. Review of Systems 2 Review of Systems: Negative except for that which is stated in the HPI. [facility] Social History Alcohol intake: current Alcohol intake frequency: a few times a week Smoked in Last 30 Days: No Use of substances other than those prescribed or required for medical reasons: Yes Substance Use Type: Marijuana Advance Directives: No Advance Directives Information Provided: No Do you have a plan to hurt others: No Plan Meds Allergies Allergy/AdvReac Type Severity Reaction Status Date / Time No Known Allergies Allergy Verified 09/20/24 06:40 Home Medications ?Medication ?Instructions ?Recorded ?Confirmed ?Last Taken ?Type amitriptyline 10 mg tablet 10 mg PO BEDTIME 09/20/24 09/20/24 09/19/24 History bupropion HCl 300 mg 24 hr tablet, 300 mg PO DAILY 09/20/24 09/20/24 09/19/24 History extended release famotidine 20 mg tablet 40 mg PO BEDTIME 09/20/24 09/20/24 09/19/24 History omeprazole 40 mg capsule,delayed 40 mg PO DAILY@0630 09/20/24 09/20/24 09/19/24 History release sertraline 100 mg tablet 150 mg PO BEDTIME 09/20/24 09/20/24 09/19/24 History Physical Exam 2 Vital Signs and Narrative: Vital Signs: Last Vital Signs Temp 97.7 F 09/20/24 08:17 Pulse 100 09/20/24 10:05 Resp 18 09/20/24 10:05 BP 138/79 09/20/24 10:05 Pulse Ox 99 09/20/24 10:05 O2 Del Method Room Air 09/20/24 10:05 BMI result Body Mass Index 26.8 General: AOx3, no acute distress Resp: CTA bilaterally CVS: S1, S2, RRR GI: +BS, no distention, LUQ and periumbilical tenderness Skin: Warm, dry Neuro: Cranial nerves II-XII grossly intact bilaterally. Motor grossly intact bilaterally Extremities: No edema Psych: Appropriate affect Results Labs 09/20/24 07:20 09/20/24 07:20 Labs: Laboratory Results - last 24 hr 09/20/24 07:20 MCV 85.0 MCH 29.9 MCHC 35.2 RDW 12.4 Plt Count 268 D MPV 12.3 Immature Gran % (Auto) 0.7 H Neut % (Auto) 70.4 Lymph % (Auto) 20.4 [place]dridge % (Auto) 5.3 Eos % (Auto) 2.6 Baso % (Auto) 0.6 Lymph # (Auto) 3.3 [place] # (Auto) 0.9 Eos # (Auto) 0.4 Baso # (Auto) 0.1 Abs Immat Gran (auto) 0.12 H Absolute Neuts (auto) 11.3 H Absolute Nucleated RBC 0.000 Nucleated RBC % (auto) 0.0 ESR 3 Hold Purple Top SEE NOTE Anion Gap 19 Estim Creat Clear Calc 168.7 Estimated GFR > 60 Random Glucose 140 H Calcium 10.1 Total Bilirubin 1.4 H AST 26 ALT 27 Alkaline Phosphatase 82 C-Reactive Protein 0.13 Total Protein 8.3 H Albumin 5.2 H Lipase 12 Ethyl Alcohol < 10 Imaging Radiologist's Impressions: Impressions Abdomen/Pelvis CT 09/20/24 09:00 IMPRESSION: 1. Wall thickening of the ileum, ascending and transverse colon to the level of the splenic flexure. Findings are consistent with ileocolitis, likely secondary to inflammatory bowel disease. No complications or free intraperitoneal air. 2. Small type I hiatus hernia. 3. Diffuse fatty infiltration of the liver. 4. Additional ancillary findings as discussed in the body of the report. Fleischner guidelines were followed. Electronically signed by: Lior Roberts MD 09/20/2024 09:27 AM EDT Assessment and Plan (1) Intractable nausea and vomiting: Status: Acute (2) Hematemesis: Qualifiers: Nausea presence: with nausea Qualified Code(s): K92.0 - Hematemesis Status: Acute Plan Pt is a 29-year-old male with a PMH significant for chronic abdominal pain, depression, and?anxiety who presents to the ED with?intractable nausea, vomiting, and abdominal pain since early this morning. Pt admitted to the hospital for treatment and further evaluation of intractable nausea, vomiting, and abdominal pain with hematemesis concerning for colitis vs IBD. Intractable nausea, vomiting, abdominal pain Symptoms ongoing since 02:00 this morning Reports coffee-ground emesis and emesis streaked with bright red blood x4 One episode of melena yesterday CT of abd showing wall thickening of ileum, ascending, and transverse colon consistent with ileocolitis likely secondary to IBD Stable H&H of 16.5/46.9, CRP and ESR WNL Follows with [facility], EGD last lindsay showed dilation throughout esophagus, hiatal hernia, and squamous papilloma; colonoscopy w/TA polyp but otherwise benign Pt given Protonix 80 mg IV in the ED, will treat with Protonix 40 mg IV b.i.d. GI consult, currently do not plan on repeat EGD or colonoscopy Clear liquid diet for now, advance as tolerated Antiemetics, analgesics Stool studies if pt develops diarrhea Follow CBC Mood disorder Continue amitriptyline, bupropion, and sertraline Full Code Attending:?Dr. Miller DVT Prophylaxis: Pneumatic compression due to concerns for UGIB Pt will require a hospitalization of at least two nights for treatment of?internal nausea, vomiting, abdominal pain with hematemesis and melena concerning for colitis vs IBD with potential UGIB. As pt is having difficulty tolerating p.o. intake, he will require hospital level care for administration of IV medications including analgesics and antiemetics, as well as close monitoring of CBC and specialist consultation with GI. Quality Stroke Does the patient have a stroke diagnosis?: No VTE Prior VTE?: No VTE Risk Level:: Medical - moderate - high VTE Device Contraindication: N/A - Device Ordered VTE Drug Contraindication: Treatment Not Indicated
--- NOTE | 2024-09-20 12:17 | PHA.MEDREC ---
Pharmacy Consult ? Medication Reconciliation Pharmacy has completed the medication reconciliation.Med rec complete, spoke with patient and compared pharmacy claims history.
[2024-09-20] MEDS: Lactated Ringers 1,000 ML 100 ML IVCONT (13:10)
[2024-09-20] MEDS: buPROPion HCl XL 300 MG TAB.ER.24H PO (13:50)
--- NOTE | 2024-09-20 15:28 | P.DS_ITS ---
DS: Providers Provider Date of Service: 09/20/24 Date of admission: 09/20/24 11:56 Date of discharge: 09/20/24 Primary care physician: Rell Bey MD Consults: 09/20/24 12:00 Consult to Gastroenterology Routine Consulting Provider: Pedrito Iqbal Reason for consultation: Coffee-ground emesis, CT showing ileocolitis DS: Diagnosis Discharge Diagnosis (1) Intractable nausea and vomiting: Status: Acute (2) Hematemesis: Status: Acute DS: Summary Hospital Course Hospital Course: From admitting H&P: Pt is a 29-year-old male with a PMH significant for chronic abdominal pain, depression, and?anxiety who presents to the ED with?intractable nausea, vomiting, and abdominal pain since early this morning. Pt reports was awoken from sleep at approximately 02:00 with severe central abdominal pain and nausea and vomiting. Reports could not stop vomiting once he started. Began noticing streaks of bright red blood in his vomitus, and then reports had 4 episodes of coffee-ground emesis. Also notes had 1 episode of dark black and tarry stool yesterday morning. Describes it as looking like ?sludge?. Lightheadedness and dizziness with vomiting, and some chest tightness associated with deep breathing. Pt with some vomiting in the ED, but no coffee-ground emesis noted. Denies diarrhea. Pt reports he has had similar incidents in the past and has been seen both here on 03/09/2024 and also at [facility]. Pt reports has had similar symptoms in the past and follows with GI at [facility]. Last summer had EGD that showed dilation throughout esophagus, hiatal hernia, and squamous papilloma. Colonoscopy at the same time showed TA polyp but otherwise benign. Also being worked up with scheduled barium swallow and also seeing an it security administrator for IgA deficiency workup. Complains of chills but no measured fever. No chest pain/pressure, palpitations. Denies cough. Pt also admits to smoking marijuana 2-3 times daily. Reports he knows friends who have cannabis hyperemesis syndrome and does not believe his N/V secondary to marijuana use. In the ED pt with elevated HR up to 100 and initially mildly hypertensive at 142 /95. Labs were significant for leukocytosis 16.1 and T bili 1.4. H&H stable at 16 0.5/46.9. No significant electrolyte abnormalities. Renal function WNL. Hepatic function WNL. ESR and CRP WNL. Lipase WNL. CT?of abdomen/pelvis showed wall thickening of ileum, ascending, and transverse colon to level of splenic flexure consistent with ileocolitis, likely secondary to IBD. Also showed small hiatal hernia. Pt was treated in the ED with IVF, ketorolac, morphine, Dilaudid, ondansetron, drawer Benadryl, and Protonix IV. Pt admitted to the hospital for treatment and further evaluation of intractable nausea, vomiting, and abdominal pain with hematemesis concerning for colitis vs IBD. Hospital Course: Pt was seen and evaluated by GI who did not recommend repeat EGD and colonoscopy in the morning. Pt follows with [facility] and GI was going to check records. Recommended treating pt with IV Protonix and close monitoring of CBC for repeat bleeding. Pt, however was anxious to leave and reported feeling much better than when he did at time of presentation. States nausea well-controlled and had not had any episodes of vomiting for 4-5 hours. Abdominal pain also well- controlled. Pt was able to handle both liquids and Jell-O without return of nausea or vomiting. Met with pt and discussed goals of care and current plan, the pt elected to leave AMA despite being told risks up to and including from uncontrolled GI bleed. Pt was instructed to return to the ED if hematemesis, coffee-ground emesis, or melena returns, or if he experiences symptoms of lightheadedness/dizziness, or intractable N/V/abdominal pain. Time spent discussing smoking cessation with patient: more than 10 minutes Status at Discharge Functional status at discharge: independent ambulation Time Attestation Discharge Coordination Time (in mins): 17 Quality: Safe Use of Opioids Does Pt have an Active Cancer Diagnosis on the Problem List?: No Quality: Stroke Does the patient have a stroke diagnosis?: No Physical Exam Vital Signs: Vital Signs: Last Vital Signs Temp 99.3 F 09/20/24 14:43 Pulse 92 09/20/24 14:43 Resp 16 09/20/24 14:43 BP 134/89 09/20/24 14:43 Pulse Ox 97 09/20/24 14:43 O2 Del Method Room Air 09/20/24 14:43 BMI result Body Mass Index 26.8 Pt left AMA DS: Data Data Completed and Pending Labs on day of discharge: Laboratory Results - last 24 hr 09/20/24 07:20 WBC 16.1 H RBC 5.52 Hgb 16.5 Hct 46.9 MCV 85.0 MCH 29.9 MCHC 35.2 RDW 12.4 Plt Count 268 D MPV 12.3 Immature Gran % (Auto) 0.7 H Neut % (Auto) 70.4 Lymph % (Auto) 20.4 [place] % (Auto) 5.3 Eos % (Auto) 2.6 Baso % (Auto) 0.6 Lymph # (Auto) 3.3 [place] # (Auto) 0.9 Eos # (Auto) 0.4 Baso # (Auto) 0.1 Abs Immat Gran (auto) 0.12 H Absolute Neuts (auto) 11.3 H Absolute Nucleated RBC 0.000 Nucleated RBC % (auto) 0.0 ESR 3 Hold Purple Top SEE NOTE Sodium 142 Potassium 3.7 Chloride 105 Carbon Dioxide 22 Anion Gap 19 BUN 11 Creatinine 0.80 Estim Creat Clear Calc 168.7 Estimated GFR > 60 Random Glucose 140 H Calcium 10.1 Total Bilirubin 1.4 H AST 26 ALT 27 Alkaline Phosphatase 82 C-Reactive Protein 0.13 Total Protein 8.3 H Albumin 5.2 H Lipase 12 Ethyl Alcohol < 10 Discharge Plan Discharge Patient Disposition: Left Against Medical Advice Discharge Diagnosis: Acute ileocolitis Referrals: Rell Bey MD [Primary Care Provider] - 1 Week Discharge Medications: Continued sertraline 100 mg tablet 150 mg PO BEDTIME amitriptyline 10 mg tablet 10 mg PO BEDTIME bupropion HCl 300 mg tablet extended release 24 hr 300 mg PO DAILY omeprazole 40 mg Capsule,Delayed Release(Dr/Ec) 40 mg PO DAILY@0630 famotidine 20 mg Tablet 40 mg PO BEDTIME Discharge Orders: Discharge Order (Routine); Ordered 09/20/24 Ordered By: Kang Herrera Stand Alone Forms: Against Medical Advice Print Language: Stateless Care Plan Goals: Pt left AMA. Health Concerns: Repeat episodes of intractable nausea, vomiting, and abdominal pain Continued bleeding: Hematemesis, coffee-ground emesis, and/or black/dark colo red stools If developed bleeding or experience lightheadedness/dizziness please come to ED again for further evaluation Plan of Treatment: Continue famotidine and omeprazole Follow up outpatient with GI Assessment: See discharge summary Discharge Date/Time: 09/20/24 15:33
--- NOTE | 2024-09-20 15:30 | PC.NURSE ---
Patient insistent on leaving ama, provider aware and came to bedside to speak with patient. Patient stating he feels better and needs to go home. Signed ama papers, ivs removed, able to tolerate clear fluids. Did not want to wait for pa to finish putting in discharge paperwork .
--- NOTE | 2024-09-21 02:07 | CONS_ITS ---
DATE OF SERVICE: 09/20/2024 REFERRING PROVIDER: from the emergency room department. REASON FOR CONSULTATION: Hematemesis and abnormal CT scan. HISTORY OF PRESENT ILLNESS: DICTATION ENDS HERE. MD AUSTIN Flannery/ABBIE / [id number]
--- NOTE | 2024-09-23 13:40 | CONS_ITS ---
DATE OF SERVICE: 09/20/2024 REFERRING PHYSICIAN: Dr. Rai REASON FOR CONSULTATION: Hematemesis and abnormal CT scan. HISTORY OF PRESENT ILLNESS: The patient is a pleasant 29-year-old man who presented to the emergency room this morning with complaints of abdominal pain. Symptoms began around 2 a.m. in the morning of admission with severe abdominal pain which became generalized after initially starting in the epigastric area and was associated with nausea and vomiting, this included coffee-ground material. The patient described some black stools on the day of admission. He was evaluated in the emergency department with laboratory studies showing a hematocrit of 46.9. Imaging was obtained, which was reviewed. This showed wall thickening consistent with ileocolitis, which was thought secondary to inflammatory bowel disease. Small hiatal hernia and fatty liver infiltration were noted. The patient has no history of ileocolitis and has had no previous rectal bleeding. PAST MEDICAL HISTORY: 1. Anxiety/depression. 2. Hiatal hernia. 3. History of upper endoscopy and colonoscopy in [place] where he follows, records not available. FAMILY HISTORY: This is reviewed with the patient. SOCIAL HISTORY: There is a history of cannabis usage. He does report drinking alcohol the day before the procedure. CURRENT MEDICATIONS: His current medication list is reviewed in the chart. ALLERGIES: THERE ARE NONE REPORTED. REVIEW OF SYSTEMS: SKIN: No pruritus. HEENT: Negative. CARDIOPULMONARY: No shortness of breath or chest pain. GASTROINTESTINAL: As above. GENITOURINARY: Negative. NEUROPSYCHIATRIC: Negative. PHYSICAL EXAMINATION: GENERAL: Shows a pleasant male, lying comfortably in bed. VITAL SIGNS: Stable. SKIN: Anicteric. HEENT: Shows no scleral icterus. NECK: Without lymphadenopathy or thyromegaly. LUNGS: Clear. HEART: Shows a regular rate and rhythm. S1, S2. No murmur. ABDOMEN: Soft without focal masses or tenderness. Bowel sounds are present. No organomegaly is noted. EXTREMITIES: Without edema. LABORATORY DATA AND IMAGING STUDIES: Reviewed. IMPRESSION: 1. Coffee-grounds emesis. 2. Abnormal CT scan of the GI tract. At this time, he appears stable with no active GI bleeding. Laboratory studies are also stable and his imaging has been reviewed. I would recommend monitoring him for further GI bleeding. He may need endoscopy if this recurs. Outside records will be obtained and reviewed. I would treat him with a proton pump inhibitor, antiemetics, and gradually advance his diet. The differential diagnosis for his upper GI bleeding includes Shanel-Donovan tear, esophagitis, and peptic ulcer disease. At this time, he shows no signs of colitis and I have not recommended any further evaluation of his lower GI tract. Outside records will be reviewed. MD AUSTIN Flannery/ABBIE / [id number]
== END 2024-09-20 15:33 | disposition left against medical advice (07) | DRG 253 ==
LOC: HO.ED 11:30 → HO.EDOVER 12:07
PROVIDERS: Admitting Provider Student in an Organized Health Care Education/Training Program; Emergency Provider Emergency Medicine Emergency Medical Services; PCP Internal Medicine; Visit Provider Student in an Organized Health Care Education/Training Program
DX: K92.0 Hematemesis (principal); F39 Unspecified mood [affective] disorder; K52.9 Noninfective gastroenteritis and colitis, unspecified; Z79.899 Other long term (current) drug therapy
CPT/HCPCS: 36415; 74177; 80053; 80307; 83690; 85025; 85652; 86140; 99284; J1171; J1790; J1885; J2270; J2405; J2470; J7120; Q9967

== ENCOUNTER → 2024-09-20 08:10 | Outpatient (BNV) | payer BC, SELFPAY | PROVIDERS: Emergency Provider Emergency Medicine Emergency Medical Services; PCP Internal Medicine; Visit Provider Radiology Diagnostic Radiology | DX: K63.89 Other specified diseases of intestine (principal); K44.9 Diaphragmatic hernia without obstruction or gangrene; K76.0 Fatty (change of) liver, not elsewhere classified | CPT/HCPCS: 74177 ==

== ENCOUNTER → 2024-09-20 11:56 | Outpatient (BNV) | payer BC, SELFPAY | PROVIDERS: Admitting Provider Student in an Organized Health Care Education/Training Program; Emergency Provider Emergency Medicine Emergency Medical Services; PCP Internal Medicine; Visit Provider Student in an Organized Health Care Education/Training Program | DX: R11.2 Nausea with vomiting, unspecified (principal); K92.0 Hematemesis | CPT/HCPCS: 99223 ==